=== PATIENT | female | born 1960 | race Caucasian/White ===

== ENCOUNTER 2017-02-22 13:05 | Emergency (ER) | payer OTHER ==
[~2017-02-22] VITALS: Ht 162.6 cm; Wt 76.5 kg
[~2017-02-22 13:05] MED LIST: ADVAIR 250/501 DISK IH; AMBIEN10 M1 PO; Levaquin PO; NEXIUM20 MG PO; PAXIL10 MG PO; PROAIR HFA8.5 GM IH; VESICARE5 MG PO; WELLBUTRIN SR150 MG PO
[2017-02-22 15:11] LABS: EOSINOPHIL COUNT 0.2 K/uL (0-0.3); HEMATOCRIT 40.1 % (36.0-46.0); INSTRUMENT ABS NEUTROPHIL CT 2.3 K/uL; LYMPHOCYTE COUNT 1.4 K/uL (1.0-2.8); MCH 30.3 PG (29.0-34.0); MCHC 34.7 G/DL (30.0-36.0); MCV 87.4 FL (83-99); MEAN PLAT.VOLUME 10.4 uM^3 (9.5-12.4); MONOCYTE (%) 5.4 % (3-12); MONOCYTE COUNT 0.2 K/uL (0-0.8); NEUTROPHIL (%) 55.8 % (45-76); NEUTROPHIL COUNT 2.3 K/uL (1.8-6.4); PLATELET COUNT 188 K/uL (156-360); RBC DIS.WIDTH-CV 12.1 % (11.8-14.6); RBC DIS.WIDTH-SD 38.7 % (39-53); RED BLOOD COUNT 4.59 M/uL (3.80-5.20); WHITE BLOOD COUNT 4.1 K/uL (4.1-10.2)
[2017-02-22] MEDS ORDERED: VALIUM5 MG PO (18:27)
[2017-02-22] MEDS ORDERED: BONINE25 MG PO (18:27)
[2017-02-22 18:47] VITALS: BP 167/91
== END 2017-02-22 18:58 | disposition home or self-care (01) ==
LOC: EME 13:05
PROVIDERS: Emergency Medicine
DX: R42 Dizziness and giddiness (principal); M79.662 Pain in left lower leg; J45.909 Unspecified asthma, uncomplicated; F31.9 Bipolar disorder, unspecified
CPT/HCPCS: 85025 91; 85379; 93005; 93971; 99281; 99284; J7030

== ENCOUNTER 2017-09-19 10:41 | Emergency (ER) | payer OTHER ==
[~2017-09-19] VITALS: Ht 162.6 cm; Wt 84.0 kg
[~2017-09-19 10:41] MED LIST changes: +BONINE25 MG PO; +VALIUM5 MG PO
[2017-09-19 11:29] LABS: HEMATOCRIT 41.9 % (36.0-46.0); HEMOGLOBIN 14.8 G/DL (11.9-15.5); MCH 30.8 PG (29.0-34.0); MCHC 35.3 G/DL (30.0-36.0); MCV 87.1 FL (83-99); NRBC (%) 0.5 /100 WBC (0-0); PLATELET COUNT 100 K/uL (156-360); RBC DIS.WIDTH-CV 12.2 % (11.8-14.6); RBC DIS.WIDTH-SD 38.9 % (39-53); RED BLOOD COUNT 4.81 M/uL (3.80-5.20); WHITE BLOOD COUNT 4.4 K/uL (4.1-10.2)
[2017-09-19 11:46] LABS: CHLORIDE 108 mEq/L (99-109); SODIUM 145 mEq/L (136-147)
[2017-09-19 11:47] LABS: GLUCOSE 107 mg/dL (70-99)
[2017-09-19 11:51] LABS: CREATININE 0.9 mg/dL (0.6-1.3); GFR ESTIMATE (CALCULATED) > 59 mL/min/
[2017-09-19 11:52] LABS: UREA NITROGEN (BUN) 13 mg/dL (9-23)
[2017-09-19 11:56] LABS: TROP-I INTERPRETATION NEGATIVE; TROPONIN-I < 0.01 ng/mL (0.0-0.30)
[2017-09-19] MEDS ORDERED: ZOFRAN ODT4 MG PO (12:59)
[2017-09-19] MEDS ORDERED: FIORICET 50-301 EAC1 PO (12:59)
[2017-09-19 13:11] VITALS: BP 139/99
== END 2017-09-19 13:14 | disposition home or self-care (01) ==
LOC: EME 10:41
PROVIDERS: Nurse Practitioner Family
DX: R51 Headache (principal); R11.2 Nausea with vomiting, unspecified; J45.909 Unspecified asthma, uncomplicated; F41.9 Anxiety disorder, unspecified; F32.9 Major depressive disorder, single episode, unspecified; F31.9 Bipolar disorder, unspecified; Z79.51 Long term (current) use of inhaled steroids; Z90.49 Acquired absence of other specified parts of digestive tract; Z90.710 Acquired absence of both cervix and uterus; Z88.1 Allergy status to other antibiotic agents; Z91.018 Allergy to other foods; Z88.8 Allergy status to other drugs, medicaments and biological substances
CPT/HCPCS: 70450; 80048; 84484; 85027; 93005; 99281; 99285; J1200; J1885; J2405; J7030